=== PATIENT | female | born 2000 | race Caucasian/White ===

== ENCOUNTER 2023-01-10 19:33 | Emergency (ER) | payer MEDICAID ==
[~2023-01-10] VITALS: Ht 160 cm; Wt 56.0 kg
[2023-01-10] MEDS ORDERED: dexamethasone sod phosphate 10mg/ml inj IM STA (19:38)
== END 2023-01-10 20:11 | disposition home or self-care (01) ==
LOC: ER 19:33
DX: L23.7 Allergic contact dermatitis due to plants, except food (principal); Z88.2 Allergy status to sulfonamides
CPT/HCPCS: 96372; 99283; J1100